=== PATIENT | male | born 2000 | race Asian ===

== ENCOUNTER 2023-10-25 13:22 | Emergency (ER) | payer BC ==
[~2023-10-25] VITALS: Ht 167.6 cm; Wt 102.1 kg
[2023-10-25] MEDS ORDERED: PANTOPRAZOLE 40 MG VIAL ONE (13:45)
[2023-10-25] MEDS ORDERED: ONDANSETRON HCL/PF 4 MG/2 ML VIAL ONE (13:45)
[2023-10-25 13:58] LABS: BASOPHILS # (AUTO) 0.1 K/uL (0.0-0.2); BASOPHILS % (AUTO) 0.8 % (0.0-2.0); EOSINOPHILS # (AUTO) 0.3 K/uL (0.0-0.7); EOSINOPHILS % (AUTO) 3.3 % (0.0-6.0); HEMATOCRIT 46 % (39-51); HEMOGLOBIN 15.3 g/dL (13.5-17.5); LYMPHOCYTES # (AUTO) 1.1 K/uL (0.8-4.8); MEAN CORPUSCULAR HEMOGLOBIN 28 PG (26.0-33.0); MEAN CORPUSCULAR HGB CONC 34 g/dl (31.0-36.0); MEAN CORPUSCULAR VOLUME 83 fL (80-96); MONOCYTES # (AUTO) 0.6 K/uL (0.1-1.30); MONOCYTES % (AUTO) 6.8 % (2.0-12.0); NEUTROPHILS # (AUTO) 6.7 K/uL (1.8-8.9); NEUTROPHILS % (AUTO) 76.1 % (43.0-81.0); PLATELET COUNT (AUTO) 305 K/uL (150-450); RED BLOOD CELL COUNT(AUTO) 5.47 MIL/uL (4.5-6.0); RED CELL DISTRIBUTION WIDTH 15.1 % (11.5-15.0); WHITE BLOOD COUNT (AUTO) 8.8 K/uL (4.3-11.0)
[2023-10-25] MEDS ORDERED: ONDANSETRON HCL/PF 4 MG/2 ML VIAL IVP ONE (14:00)
[2023-10-25] MEDS: IV NS 0.9% 1,000 ML BAG IV ONE (14:04)
[2023-10-25] MEDS: PANTOPRAZOLE 40 MG VIAL IV ONE (14:05)
[2023-10-25 14:09] LABS: CALCIUM, SERUM 9.2 mg/dL (8.5-10.1); CREATININE 0.9 mg/dL (0.6-1.3); POTASSIUM 3.9 mmol/L (3.5-5.1)
[2023-10-25 14:14] LABS: INR 1.01 (0.91-1.10); PARTIAL THROMBOPLASTIN TIME 29.3 SEC (24.3-34.3); PROTHROMBIN TIME 10.4 SECS (9.2-11.1)
[2023-10-25 14:15] LABS: BILIRUBIN,DIRECT 0.2 mg/dL (0.0-0.2); BILIRUBIN,TOTAL 0.7 mg/dL (0.2-1.0); TOTAL PROTEIN, SERUM 8.1 g/dL (6.4-8.2)
[2023-10-25] MEDS ORDERED: BENZ-13 PO (15:33)
[2023-10-25] MEDS ORDERED: SUMATRIPTAN SUCCINATE 25 MG TABLET ONE (15:39)
[2023-10-25] MEDS: SUMATRIPTAN SUCCINATE 25 MG TABLET PO ONE (15:54)
[2023-10-25 16:05] VITALS: BP 143/88; TEMP 98.4; O2SAT 97
== END 2023-10-25 16:31 | disposition home or self-care (01) ==
LOC: ER 13:35
DX: R04.2 Hemoptysis (principal); R05.9 Cough, unspecified; R07.9 Chest pain, unspecified; G43.909 Migraine, unspecified, not intractable, without status migrainosus; Z88.6 Allergy status to analgesic agent; Z20.822 Contact with and (suspected) exposure to COVID-19
CPT/HCPCS: 99285; 96374; 96361; 93005; 87804 ×2; 71045; 85025; 80048; 83690; 80076; 36415; 84484; 85730; 87426; J2405; J7030; J2470